=== PATIENT | male | born 1950 | race Caucasian/White ===

== ENCOUNTER → 2017-02-01 | Outpatient (CLI) | payer MEDICARE, OTHER ==
[~2017-02-01] MED LIST: AMARYL2 MG PO; AMLODIPINE BES2.5 MG PO; ATORVASTATIN CA80 MG PO; HYDROCHLOROTHIA1 TA2 PO; METFOMIN HYDRO850 MG PO; METOPROLOL SUC100 M2 PO; MOTRIN 400MG.400 MG PO; NORCO 325 MG-51 TAB PO; OMEPRAZOLE20 MG PO; TESSALON PERLE100 MG PO; ZITHROMAX Z PA250 MG PO
--- NOTE | 2017-02-02 10:43 | RADIOLOGY REPORT PS360 ---
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 Numbness and tingling in right arm. Prior neck surgery NECK PAIN ORDERING PHYSICIAN: Marisela Jesus MD PATIENT AGE: 66 years COMPARISON: Radiograph of 11/29/2016 TECHNIQUE: Standard multiplanar multiecho sequences are performed without contrast. 3-D MIP and myelographic images are also rendered and reviewed FINDINGS: There is normal alignment. There has been prior anterior cervical disc fusion at C5, C6, and C7. The craniocervical junction has an unremarkable appearance. C2-C3: Small right uncovertebral disc osteophyte complex with resultant mild to moderate right lateral recess and right-sided foraminal narrowing. C3-C4: Small left uncovertebral disc osteophyte complex with moderate left-sided foraminal narrowing. C4-C5: Degenerative disc disease with endplate osteophytes and bulging disc. There is facet and ligamentum flavum hypertrophy with hypertrophy of the lamina posteriorly with resultant canal stenosis of 8 mm. There is mild impingement upon the anterior and posterior aspect of the cord. There is bilateral lateral recess and foraminal narrowing. C5-C6: Artifact from intrapedicular screws. Normal alignment. No canal stenosis. Mild left lateral recess narrowing from uncovertebral hypertrophy. C6-C7: Prior fusion with artifact from the interpedicular screws. C7-T1: 3 mm anterolisthesis of C7 on T1 with mild facet and ligamentous hypertrophy with bilateral lateral recess and mild bilateral foraminal narrowing.. IMPRESSION: 1. Postsurgical changes with fusion anteriorly at C5-C6 and C6-C7. 2. Multilevel cervical spondylosis with degenerative disc disease and uncovertebral hypertrophy with bulging disc. Please see above for detailed description at each level. 3. Degenerative disc disease at C4-C5 with endplate osteophytes and bulging disc. There is facet and ligamentum flavum hypertrophy with hypertrophy of the lamina posteriorly with resultant canal stenosis of 8 mm. There is mild impingement upon the anterior and posterior aspect of the cord. There is bilateral lateral recess and foraminal narrowing 4. No extruded herniated disc apparent
== END ==
LOC: RAD 08:08
DX: M54.2 Cervicalgia (principal)